=== PATIENT | male | born 1975 | race Hispanic/Latino ===

== ENCOUNTER 2021-11-09 12:21 | Emergency (ER) | payer OTHER ==
[2021-11-09] VITALS (9 sets, daily range): BP systolic 107–122; BP diastolic 63–79
[~2021-11-09] VITALS: Ht 175.3 cm; Wt 81.0 kg
[2021-11-09] MEDS ORDERED: KEFLEX500 MG PO (14:28)
== END 2021-11-09 14:32 | disposition home or self-care (01) | DRG 563 ==
LOC: ED 12:21
DX: S62.663A Nondisplaced fracture of distal phalanx of left middle finger, initial encounter for closed fracture (principal); S67.193A Crushing injury of left middle finger, initial encounter; S61.213A Laceration without foreign body of left middle finger without damage to nail, initial encounter; W20.8XXA Other cause of strike by thrown, projected or falling object, initial encounter; Y93.89 Activity, other specified; Y92.89 Other specified places as the place of occurrence of the external cause; Y99.0 Civilian activity done for income or pay